=== PATIENT | male | born 1985 | race Caucasian/White ===

== ENCOUNTER 2021-07-20 13:34 | Outpatient (REF) | payer OTHER, SELFPAY | END 2021-07-20 13:35 | disposition home or self-care (01) | LOC: HO.LNP 13:34 | PROVIDERS: Visit Provider Family Medicine | DX: Z20.822 Contact with and (suspected) exposure to COVID-19 (principal); R09.81 Nasal congestion | CPT/HCPCS: U0003; U0005 ==